=== PATIENT | male | born 1995 | race Caucasian/White ===

== ENCOUNTER 2018-08-13 07:25 | Emergency (ER) | payer SELFPAY ==
[2018-08-13 07:28] VITALS: BP 157/117
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
== END 2018-08-13 07:44 ==
LOC: ER 07:39
DX: F10.920 Alcohol use, unspecified with intoxication, uncomplicated (principal)

== ENCOUNTER 2018-08-19 03:09 | Emergency (ER) | payer SELFPAY ==
[2018-08-19 03:09] VITALS: BP 152/75
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
[2018-08-19 03:54] LABS: PLATELET COUNT, AUTOMATED 235 K/uL (150-450)
[2018-08-19] MEDS ORDERED: OLANZapine 10 MG VIAL IM ONLY ONE (04:00)
[2018-08-19] MEDS ORDERED: WATER STERILE 10 ML VIAL IM ONLY ONE (04:00)
[2018-08-19] MEDS ORDERED: diphenhydrAMINE 50 MG/ML VIAL IVP ONE (04:00)
[2018-08-19] MEDS ORDERED: LORazepam 2 MG/ML VIAL IVP ONE (04:00)
[2018-08-19] MEDS ORDERED: diphenhydrAMINE 50 MG/ML VIAL IM ONE (04:15)
[2018-08-19] MEDS ORDERED: LORazepam 2 MG/ML VIAL IM ONE (04:15)
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
== END 2018-08-19 04:57 ==
LOC: ER 03:13
DX: F10.920 Alcohol use, unspecified with intoxication, uncomplicated (principal); Y90.8 Blood alcohol level of 240 mg/100 ml or more; R45.850 Homicidal ideations; R45.851 Suicidal ideations; F32.9 Major depressive disorder, single episode, unspecified; R45.1 Restlessness and agitation
CPT/HCPCS: 36415; 80305; 80320; 80329; 81001; 83735; 84443; 85025; 96372; 99284; A4216; J1200; J2060; J3490; 82040; 82247; 82310; 82374; 82435; 82565; 82947; 84075; 84132; 84155; 84295; 84450; 84460; 84520

== ENCOUNTER 2018-08-21 14:45 | Inpatient (IN) | payer MEDICAID ==
[~2018-08-21] VITALS: Ht 180.3 cm; Wt 59.9 kg
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
[2018-08-21 15:25] LABS: PLATELET COUNT, AUTOMATED 237 K/uL (150-450)
[2018-08-21] MEDS ORDERED: MAG HYD/AL HYD/SIMETH 30ML UDC PO PRN (17:00)
[2018-08-21] MEDS ORDERED: NICOTINE CARTRIDGE 1 EA PO PRN (17:00)
[2018-08-21 17:57] VITALS: BP 135/95
[2018-08-21] MEDS: NICOTINE INH SYSTEM 10 MG/INH INH PRN (18:22)
[2018-08-21] MEDS: traZODone HCL 50 MG TAB PO PRN (22:41)
[2018-08-22 06:16] VITALS: BP 118/78
[2018-08-22] MEDS: MULTIVITAMINS PO SCH (08:37)
[2018-08-22] MEDS: NICOTINE INH SYSTEM 10 MG/INH INH PRN (16:18)
[2018-08-22 21:14] VITALS: BP 132/95
[2018-08-23 05:45] VITALS: BP 99/55
[2018-08-23] MEDS: MULTIVITAMINS PO SCH (08:44)
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
[2018-08-23 12:24] VITALS: BP 147/95
--- NOTE | 2018-08-23 15:00 | BHS Progress Note ---
[facility] - Subjective Progress Notes Subjective Patient interacting in a manner more immature than chronological age would suggest in general today. Able to participate in group without being an exceptional disruption. Patient not able to fully grasp the negatives of alcohol and drug abuse in his life. Patient encouraged to develop life goals and effective plans. Patient's Father agrees to sweet pickle maker patient from unit in AM. No para-suicidal behaviors on unit, no physical aggression toward staff. Patient consciously engaging in manipulative behaviors with his parents on phone, and is developing antisocial personality traits. Suicidal Ideation: None Homicidal Ideation: None [facility] - Objective Physical Exam Vital Signs Vital Signs Date Time Temp Pulse Resp B/P (MAP) Pulse Ox O2 Delivery O2 Flow Rate FiO2 08/23/18 12:24 98.7 80 147/95 (112) 98 Room Air 08/23/18 05:45 15 Muscle Strength and Tone: WNL Gait and Station: Steady [facility] Medications Reviewed: Side Effects, Benefits of Medication, Risks Allergies Reviewed: Yes Mental Status Exam General Appearance: Casual, Well Groomed, Good Eye Contact (fair); No Cooperative, No Polite, No Good Interaction; Psychomotor Retardation; No Bizarre Mannerisms, No Tics Speech: Clear, Spontaneous; No Normal Volume, No Normal Tone; Delayed (some delay) Mood: Euthymic Affect: Calm; No Withdrawn, No Anxious, No Agitated Thought Process: Organized; No Loose Associations, No Flight of Ideas Thought Content: No Suicidal Ideation (resolved); Homicidal Ideation (resolved); No Delusions, No Auditory Halllucinations, No Visual Hallucinations, No Thought Broadcasting, No Ideas of Reference, No Obsessions, No Compulsions Sensorium: Clear Cognition: Alert & Oriented-Person, Alert & Oriented-Place, Alert & Oriented- Time, [id number] (partially) Memory: Immediate, Recent, Remote Intelligence: Average Insight Judgment: Intact (in absence of drug use), Poor (limited by immaturity and not taking drug and alcohol use seriously .) Result Diagram: 08/21/18 1500 08/21/18 1500 [facility] Assessment and Plan [id number] Encounter Date: Aug 23, 2018 [id number] Encounter Time: 10:00 [facility] Plan: Necessary Precautions, Individual/Group Therapy, Admin/Titrate Meds, Educate Patient Tobacco Medications: Started Multpiple Antipsychotics Used: No Problems: (1) Alcohol use disorder, severe, in controlled environment Status: Chronic (2) Cannabis use disorder, severe, in controlled environment Status: Chronic (3) Substance induced mood disorder Status: Acute Condition 1. continue treatment. 2. plan for discharge in AM to Family members. ALYSON VOGEL MD Aug 23, 2018 15:00
[2018-08-23 20:07] VITALS: BP 133/96
[2018-08-24] MEDS: traZODone HCL 50 MG TAB PO PRN (02:16)
[2018-08-24 02:21] VITALS: BP 132/97
[2018-08-24] MEDS: MULTIVITAMINS PO SCH (08:27)
[2018-08-24] MEDS ORDERED: MULT-1379 PO (08:45)
[2018-08-24] MEDS ORDERED: NICOTROL CARTRIDGE PO (08:46)
[2018-08-24] MEDS ORDERED: NIC10R INH (08:46)
[2018-08-24 09:13] VITALS: BP 128/81
--- NOTE | 2018-08-25 12:34 | SCHAAF DISCHARGE ---
DATE OF ADMISSION: August 21, 2018 DATE OF DISCHARGE: August 24, 2018 ATTENDING PHYSICIAN Lenny Perez MD The patient was seen at approximately 0830 hours on the a.m. of August 24, 2018 for note concerning this dictation. Multiple discussions were also held with the patient's father during this time. FINAL DIAGNOSES 1. Alcohol use disorder, severe. 2. Cannabis use disorder, severe. 3. Substance induced mood disorder, resolved secondary to alcohol. 4. Other substance use. Patient indicating the desire to use other substances when he desires. 5. Developing antisocial traits. 6. Immaturity greater than expected for chronological age. 7. Ongoing parent relational problems. REASON FOR ADMISSION Please refer to H and P for full details. This is a 23-year-old male who has not been in the [facility] long. The patient initially had been living in the [place], [place] with relatives including his grandparents. The patient then not able to live there anymore and moved to [place], [place] to live with his mother. The patient created chaos in that home to where mother could not tolerate his presence as she had an 11-year-old daughter in the home. The patient then moved to [place] to live with his sister where he quickly became intoxicated, noted to be in the emergency room on August 13, 2018 for public intoxication, then returning on August 19, 2018 where he was emergency detained after belligerent behavior, striking police officers and brought to the local snf. The patient then transferred back from snf to [facility] Unit for further evaluation. The patient initially making homicidal threats against his sister and his sister's boyfriend. These quickly resolved with the absence of alcohol intoxication. The patient was admitted to the unit, notably did not take an active role in his care, acting immaturely, quick to point out the perceived faults of others. Patient was engaging in conscious manipulation of parents via phone in an effort to have his immediate needs met. The patient able to refrain from any physical aggression towards staff while on the unit. However, the patient remaining mildly uncooperative with treatment. The patient seemingly having little to no desire to consider the potential negatives that he will see in his life based on his continued use of alcohol and drugs and seemingly not taking life seriously. The patient indicating no real goals for his future at this time. The patient also noted to be manipulating family members on the phone in an effort to get continued aid to continue his current life-style. The patient stating he wants to go back to [place]. The patient was overheard on the phone stating that he did not want to ride with grandpa as he hears him talk too much, asking his father to come and get him instead. The patient noted on the unit to be smearing "I love marijuana" with toothpaste on the mirror in his room. The patient adamantly denying suicidal ideations. Much effort was put into helping this patient recognize the error of his ways in the hope that the patient would obtain employment and take on normal life responsibilities. The patient's father drove from [place], [place] to chicken picker the patient. The patient's father himself was seen to be uncooperative in nature on the unit, and also quick to point out perceived flaws with care here. Patient's mother indicated that this is expected behavior from patient's father as well. The patient's father was noted to be verbally abusive to staff as well while on the unit. The patient's father then left the hospital. Plans were made for the patient to ride a bus back to [place], [place] to live with his grandparents. The patient's father then returning to the hospital. The patient's sister also at the hospital and patient discharged into the care of family members. Appointments were set up for outpatient treatment in [place], [place] with [facility]. The Crisis Line was given should symptoms return. No medications were given at the time of discharge and the patient was encouraged strongly to abstain from alcohol, cannabis and all other illicit substances. PHYSICAL EXAMINATION Please see emergency room note. Notable for 23-year-old male, intoxicated at the time of arrival in the ER on August 19, 2018. The patient belligerent, striking police officers. Vital signs at the time of admission: Temperature 97.1, respiratory rate 15, blood pressure 152/75. Vital signs at the time of [facility] from [facility]: Temperature 99.4, pulse 75, respiratory rate 15, blood pressure 128/81 and pulse oximetry 97% on room air. LABORATORY DATA CBC unremarkable. CMP notable for mild elevation in AST of 44. TSH 2.48 normal range. Urinalysis unremarkable. Toxicology screen positive for cannabis, negative for other substances of abuse with a serum alcohol level nondetectable on 08/21/2018 after patient had spent time in snf. MENTAL STATUS EXAMINATION GENERAL APPEARANCE, BEHAVIOR AND ATTITUDE: At the time of discharge, this is fairly well-groomed 23-year-old male putting little effort into communicating with staff. The patient demonstrating psychomotor retardation. The patient only quick to berate staff and critique this provider's job duties. The patient interacting in a haughty manner and entitled manner. No periods of tearfulness. SPEECH: Seemingly purposely slow. MOOD: Described as irritated from being on the unit. AFFECT: Mildly constricted and mood-congruent. THOUGHT PROCESSES: Seem goal-directed. The patient actively engaging in efforts to return to [place], [place] to live with grandparents. The patient interacting in a belligerent manner with his father while on the unit as well. No loose associations or flight of ideas could be determined. THOUGHT CONTENT: Free of auditory or visual hallucinations, ideas of reference, thought broadcastings, delusions, obsessions or compulsions. The patient adamantly denying suicidal or homicidal ideation. The patient showing no parasuicidal behaviors on the unit or physical aggression towards staff, and is consciously in control of any physical outbursts. SENSORIUM: Appeared mostly clear. COGNITION: Alert and oriented to person, place, time but certainly patient did not fully understand the extent of the situation concerning ongoing drug abuse and alcohol dependence with no clear goals for his future established. MEMORY: Immediate, recent and remote was estimated mostly intact. INTELLIGENCE: Average, based on interview. INSIGHT AND JUDGMENT: Limited while under the influence of alcohol and cannabis, but considered appropriate for discharge in the absence of drug and alcohol use, and into care of family members. RESULTS OF TESTING Imaging: None. Laboratory data: See above. Psychological testing: Not done. CONSULTATIONS None. TREATMENT Patient was given low-dose trazodone while on the unit to help with sleep. This seemed beneficial. However, at time of discharge, the patient stating "I don't want any of your medications. Don't you hear me?" The patient gave minimal participation in individual and group therapy. HOSPITAL COURSE The patient remained belligerent and seemingly not wanting to develop any life skills while on the unit. The patient continued to indicate his desire to continue alcohol and cannabis use and interacting in an immature manner throughout his stay. CONDITION OF PATIENT ON DISCHARGE Stable in the absence of drug and alcohol use. Considered a minimal risk to himself or others in the absence of drug and alcohol use. DISPOSITION The patient was discharged to the care of his father and care of his sister. Adamantly denying any homicidal ideation. The patient would return either with his father or on a bus to [place], [place] where he will resume living with relatives. Discharge medications: none. The patient could take a multivitamin with minerals daily and encouraged strongly to quit smoking nicotine as well as the use of alcohol and cannabis and not use any other illicit substances. The patient would again follow up with [facility] in [place], [place] and was given the Crisis Line should any symptoms return. The prognosis for this patient remains very poor unless the patient is strongly encouraged and no longer further enabled to continue his irresponsible life-style. The patient's prognosis also remains poor if he continues to use alcohol, cannabis and other substances. The risks versus benefits of the above discharge plan were discussed. Informed consent was given to proceed with the above discharge plan by this patient, and the patient's family members. MARCELO
== END 2018-08-24 12:54 | disposition home or self-care (01) | DRG 897 ==
LOC: ER 15:03 → BHS 16:27
PROVIDERS: ADMIT Psychiatry & Neurology Psychiatry; ATTEND Psychiatry & Neurology Psychiatry
DX: F10.24 Alcohol dependence with alcohol-induced mood disorder (principal); F12.90 Cannabis use, unspecified, uncomplicated; Z72.811 Adult antisocial behavior; F60.89 Other specific personality disorders; Z63.8 Other specified problems related to primary support group
CPT/HCPCS: 36415; 80305; 80320; 80329; 81001; 82040; 82247; 82310; 82374; 82435; 82565; 82947; 83735; 84075; 84132; 84155; 84295; 84443; 84450; 84460; 84520; 85025; 99284